=== PATIENT | male | born 1940 | race Caucasian/White ===

== ENCOUNTER 2018-11-24 09:48 | Day surgery (SDC) | payer OTHER ==
[2018-11-21 10:42] LABS: BASOPHILS # (AUTO) 0.1 X10'3 (0-0.2); BASOPHILS % (AUTO) 0.6 % (0-1); EOSINOPHILS # (AUTO) 0.2 X10'3 (0-0.9); HEMATOCRIT 36.9 % (42.0-52.0); HEMOGLOBIN 11.8 g/dl (14.0-17.9); LYMPHOCYTES # (AUTO) 0.8 X10'3 (1.1-4.8); LYMPHOCYTES % (AUTO) 9.5 % (21-51); MEAN CORPUSCULAR HEMOGLOBIN 25.6 PG (27.0-31.0); MEAN CORPUSCULAR VOLUME 79.8 FL (78-98); MEAN PLATELET VOLUME 10.8 FL (7.4-10.4); MONOCYTES # (AUTO) 0.4 X10'3 (0-0.9); MONOCYTES % (AUTO) 4.4 % (2-12); NEUTROPHILS # (AUTO) 7.2 X10'3 (1.8-7.7); NEUTROPHILS % (AUTO) 83.5 % (42-75); PLATELET COUNT 143 X10'3 (140-440); RED BLOOD COUNT 4.62 X10'6 (4.70-6.10); RED CELL DISTRIBUTION WIDTH 22.1 % (11.5-14.5); WHITE BLOOD COUNT 8.6 X10'3 (4.5-11.0)
[2018-11-21 10:51] LABS: ALBUMIN 3.1 G/DL (3.4-5.0); ANION GAP 8 (8-16); BLOOD UREA NITROGEN 30 MG/DL (7-18); BUN/CREATININE RATIO 15.2 (5.4-32.0); CALCIUM 9.7 MG/DL (8.5-10.1); CHLORIDE 104 MMOL/L (99-107); CREATININE 1.98 MG/DL (0.60-1.10); GLUCOSE 143 MG/DL (70-104); POTASSIUM 3.6 MMOL/L (3.5-5.1); SODIUM 141 MMOL/L (135-145); eGFR 33 ML/MIN
[2018-11-21 10:58] LABS: INR 1.2 INR; PARTIAL THROMBOPLASTIN TIME 33 SECONDS (22-32); PROTHROMBIN TIME 11.9 SECONDS (9.0-12.0)
[2018-11-21 10:59] LABS: ANISOCYTOSIS 3+; MICROCYTOSIS 1+; PLATELET ESTIMATE NORMAL
[2018-11-21 11:00] LABS: ELLIPTOCYTES FEW; POIKILOCYTOSIS FEW; POLYCHROMASIA FEW
[~2018-11-24] VITALS: Ht 177.8 cm; Wt 143.0 kg
[~2018-11-24 09:48] MED LIST: ALBU8.5H4 IH; ALLO100T PO; APIX5TAB3 PO; ASPI-611 PO; ATEN-169 PO; ATOR40TA PO; BUDE10.2 INH; CA C1TAB69 PO; CODE30SO PO; FINA5TAB11 PO; FLO0.4C PO; FURO40TA4 PO; LANTUS SQ; LORA-512 PO; LOSA100T13 PO; MULT-1085 PO; NOR5T PO; OMEG1CAP54 PO; OMEP40CA37 PO; PER5325T PO; TEMA30CA5 PO; TIOT18CA7 IH
[2018-11-24] MEDS ORDERED: normal saline 1000ml 1,000 ML IV SCH (10:25)
[2018-11-24] MEDS ORDERED: LORazepam 0.5 MG tablet PO PRN (10:25)
[2018-11-24] MEDS ORDERED: diphenhydrAMINE 25mg capsule PO PRN (10:25)
[2018-11-24] MEDS ORDERED: sod bicarbonate 150mEq in D5W 1,150 ML IV ONE (10:25)
[2018-11-24] MEDS ORDERED: BENZ-49 PO (12:59)
[2018-11-24] MEDS ORDERED: METO200T49 PO (12:59)
[2018-11-24 13:02] VITALS: BP 138/69
[2018-11-24] MEDS ORDERED: midazolam 2 mg/2 ml injection ONE (18:48)
[2018-11-24] MEDS ORDERED: iohexol 350MG/ML 100ml bottle IV ONE (18:48)
[2018-11-24] MEDS ORDERED: LIDOcaine 1% (10mg/ml)w/preservative injection 20ml MDV ONE (18:48)
[2018-11-24 19:45] VITALS: BP 136/66
[2018-11-24 20:00] VITALS: BP 132/61
[2018-11-24] MEDS ORDERED: proCHLORperazine 10 MG/2 ml inj IV PRN (20:10)
[2018-11-24] MEDS ORDERED: ondansetron/PF 4mg/2ml inj IV PRN (20:10)
[2018-11-24] MEDS ORDERED: OXAZEpam 15mg capsule PO PRN (20:10)
[2018-11-24 20:15] VITALS: BP 104/45
[2018-11-24 20:30] VITALS: BP 126/68
== END 2018-11-24 21:00 | disposition home or self-care (01) ==
LOC: SSTAY O 09:48
PROVIDERS: ATTEND Internal Medicine Interventional Cardiology
DX: I25.118 Atherosclerotic heart disease of native coronary artery with other forms of angina pectoris (principal); I35.0 Nonrheumatic aortic (valve) stenosis; I25.2 Old myocardial infarction; G47.33 Obstructive sleep apnea (adult) (pediatric); E78.00 Pure hypercholesterolemia, unspecified; E11.22 Type 2 diabetes mellitus with diabetic chronic kidney disease; I13.0 Hypertensive heart and chronic kidney disease with heart failure and stage 1 through stage 4 chronic kidney disease, or unspecified chronic kidney disease; N18.9 Chronic kidney disease, unspecified; I50.32 Chronic diastolic (congestive) heart failure; I49.8 Other specified cardiac arrhythmias; J44.9 Chronic obstructive pulmonary disease, unspecified; Z85.118 Personal history of other malignant neoplasm of bronchus and lung; I48.2 Chronic atrial fibrillation; M10.9 Gout, unspecified; K21.9 Gastro-esophageal reflux disease without esophagitis; N40.0 Benign prostatic hyperplasia without lower urinary tract symptoms; F10.21 Alcohol dependence, in remission; H91.8X3 Other specified hearing loss, bilateral; F32.9 Major depressive disorder, single episode, unspecified; Z86.73 Personal history of transient ischemic attack (TIA), and cerebral infarction without residual deficits; Z87.891 Personal history of nicotine dependence; Z87.01 Personal history of pneumonia (recurrent); Z99.81 Dependence on supplemental oxygen; Z92.21 Personal history of antineoplastic chemotherapy; Z79.01 Long term (current) use of anticoagulants; Z79.82 Long term (current) use of aspirin; Z79.4 Long term (current) use of insulin; Z98.890 Other specified postprocedural states; Z79.899 Other long term (current) drug therapy; Z82.49 Family history of ischemic heart disease and other diseases of the circulatory system; Z82.3 Family history of stroke
CPT/HCPCS: 36415; 80048; 82948; 85025; 85610; 85730; 93460; 99152; 99153; A6257; C1760; J2001; J2250; J7030; Q0163; Q9967; A4620; C1769; C1894